=== PATIENT | male | born 1985 | race Caucasian/White ===

== ENCOUNTER 2019-12-05 06:57 | Emergency (ER) | payer SELFPAY ==
[2019-12-05 07:08] VITALS: BP 125/78; PULSE 100; RESP 18; TEMP 36.4; O2SAT 98
--- NOTE | 2019-12-05 07:22 | ED.GENADULT ---
HPI - General Adult General Chief complaint: Eye Problems Stated complaint: eye irration Time Seen by Provider: 12/05/19 07:05 Source: patient Mode of arrival: ambulatory Limitations: no limitations History of Present Illness HPI narrative: is a 34-year-old male patient. He presents ambulatory to the emergency room. He states that last Thursday he developed redness of the left eye. When he woke up on Thursday the left eye was matted shut with yellow drainage. He cleaned it with warm water. He had some itching and burning in the eye. The next day he developed the same thing on the right eye. He has had yellowish drainage from both eyes. No vision changes. No nasal drainage. No sore throat. No other symptoms. No pain in the eyes. MD complaint: Redness of both eyes Onset (ago): day(s) ( 3 days) Location: eyes ( both eyes) Severity: moderate Quality: burning Relieving factors: none Exacerbating factors: other ( rubbing the eyes) Associated symptoms: denies other symptoms Related Data Home Medications Medication Instructions Recorded Confirmed atorvastatin 20 mg PO DAILY 12/05/19 12/05/19 risperidone 1 mg PO BID 12/05/19 12/05/19 Allergies Allergy/AdvReac Type Severity Reaction Status Date / Time Penicillins Allergy Mild Unknown Verified 12/05/19 07:24 Review of Systems Review of Systems: All systems reviewed & are unremarkable except as noted in HPI and below Constitutional: Constitutional: Reports as per HPI, Denies chills and Denies fever(s) Eyes: Eyes: Reports as per HPI, Denies change in vision and Denies photophobia Comments: See HPI narrative ENT: Reports system reviewed and no additional complaints, except as documented, Denies nasal congestion and Denies sore throat Cardiovascular: Cardiovascular: Reports as per HPI and Denies chest pain Respiratory: Respiratory: Reports as per HPI and Denies cough Gastrointestinal: Gastrointestinal: Reports as per HPI and Reports no additional gastrointestinal complaints Genitourinary: Comments: deferred Musculoskeletal: Musculoskeletal: Reports as per HPI Comments: no complaints Integumentary/Breasts: Skin/Breast: Reports as per HPI and Denies rash Comments: redness to both eyes but no skin problems Neurologic: Reports system reviewed and no additional complaints, except as documented, Denies vertigo, Denies dizziness and Denies headache(s) Psychiatric: Psychiatric: Reports no additional psychiatric complaints Comments: has history of anxiety and takes risperidone Hematologic/Lymphatic: Hematologic/Lymphatic: Reports no additional hematologic/lymphatic complaints, Denies easy bleeding and Denies easy bruising Allergic/Immunologic: Allergic/Immunologic: Reports no additional allergic/immunologic complaints Comments: allergic to penicillin [facility] Past Medical History Medical History (Updated 12/05/19 @ 07:32 by Cj Ramsay MD) Anxiety Pyloric stenosis Surgical History Surgical History (Updated 12/05/19 @ 07:27 by Cj Ramsay MD) S/P pyloromyotomy, follow-up exam Social History Social History (Updated 12/05/19 @ 07:28 by Cj Ramsay MD) Smoking packs per day: 1 Smoking cigarettes per day: 20.0 Years smoked: 15 Smoking pack-years: 15.00 Smoking status: Current every day smoker Alcohol use details: drinks socially Substance use: never Living arrangements: with family Exam Const: General: healthy appearing, no acute distress and alert Orientation/consciousness: patient oriented x3 Limitations: no limitations HENMT: Ears: TM's normal bilaterally and EAC's normal General nose exam: Normal nares present Mouth: Yes moist mucous membranes Eyes: Conjunctivae: conjunctival abnormality ( bilateral redness of conjunctiva. Culture obtained from the eye.) right, left and bilateral Pupils: Equal, round and reactive pupils present EOM: EOMs intact bilaterally Direct Ophthalmoscopy: no ph
[2019-12-05] MEDS: DACRIOSE EYE IRRIGATION 118 ML BOTTLE 25 ML EACH EYE (07:29)
[2019-12-05 07:42] VITALS: BP 120/82; PULSE 80; RESP 20; O2SAT 98
== END 2019-12-05 07:49 | disposition home or self-care (01) ==
PROVIDERS: Emergency Provider Surgery; PCP Physician Assistant
DX: H10.9 Unspecified conjunctivitis (principal); F17.200 Nicotine dependence, unspecified, uncomplicated
CPT/HCPCS: 87070; 87077; 99283; A9270

== ENCOUNTER 2021-11-11 16:03 | Emergency (ER) | payer SELFPAY ==
--- NOTE | ~2021-11-11 | XR_ITS ---
EXAMINATION: XR hand RT min 3V EXAM DATE: 11/11/2021 17:11 INDICATION: Punched dog in the head today, H/o previous mult boxers fractures. TECHNIQUE: Right hand frontal, lateral and oblique projections obtained and reviewed. Comparison is m moe to prior examination from 03/27/2019. FINDINGS: Old right 5th metacarpal bone fractures. There are no acute fractures or dislocations iden tified. There is no subcutaneous gas. The thumb has a bandage obscuring the soft tissue but could i ndicate laceration. No other radiopaque foreign bodies identified. IMPRESSION: Right hand exam without acute osseous findings. Reviewed, dictated and finalized at location A. [employer]
--- NOTE | 2021-11-11 16:34 | ED.ANIMALBIT ---
HPI - Animal Bite General Chief Complaint: Animal Bite Stated Complaint: dog bite-leg and hand Source: patient and RN notes reviewed Mode of arrival: ambulatory Limitations: no limitations History of Present Illness HPI narrative: Patient states he noticed a dog on the side of the road walking. He stopped the open his door because he felt the dog looked cold. He states the dog lunged at him and grabbed onto his leg biting his right leg ache he then tried to put his thumb and the dog's jaw to get him to release but he did not so he started hitting the dog on the head. He has 2 puncture sue 1 on his right leg and 1 on his right thumb dorsal and palmar. He has pain to his right metacarpals. MD complaint: animal bite Onset (ago): hour(s) (15) Animal: dog Description of animal: unknown animal Mechanism: bite and contact with mucous membranes Location - Extremities: Right: forearm and thigh Pain description: dull Associated symptoms: none Treatments prior to arrival: pressure Related Data Patient tetanus UTD: No Allergies Allergy/AdvReac Type Severity Reaction Status Date / Time Penicillins Allergy Mild Unknown Verified 12/05/19 07:24 Review of Systems Review of Systems: All systems reviewed & are unremarkable except as noted in HPI and below PMFSH Past Medical History Medical History Anxiety Pyloric stenosis Surgical History Surgical History S/P pyloromyotomy, follow-up exam Social History Social History Smoking packs per day: 1 Smoking cigarettes per day: 20.0 Years smoked: 15 Smoking pack-years: 15.00 Smoking status: Current every day smoker Alcohol use details: drinks socially Substance use: never Exam Const: General: healthy appearing, no acute distress and alert Nutritional Appearance: well nourished Orientation/consciousness: patient oriented x3 HENMT: Head: normal to inspection Ears: external ears normal Eyes: Conjunctivae: conjunctivae normal Pupils: Equal, round and reactive pupils present EOM: EOMs intact bilaterally Neck: Neck: normal visual inspection Resp: Effort & Inspection: normal respiratory effort Auscultation: clear to auscultation bilaterally Cardio: Rate: regular rate Rhythm: regular rhythm GI: GI Palp: Yes Soft to palpation and No Tenderness to palpation present (GI) Auscultation: normal bowel sounds Back/Spine/Pelvis: Cervical Spine: cervical ROM normal Thoracic/Lumbar Spine: thoraco-lumbar ROM normal Skin: General skin exam: normal color Rashes: no rashes Wounds: wounds noted puncture wound right thumb size (.5 cm) and open ( Dorsal and palmar over the interphalangeal joint), puncture wound right upper leg size (.8 cm) and open ( distal inner thigh just above the knee) Neuro: General: patient oriented x3, moves all extremities, no meningeal signs, no focal motor deficits and CN's II-XI intact bilaterally Speech: normal speech Gait exam (Neuro): Normal gait present Extrem: General: normal exam except as noted and no clubbing, cyanosis or edema Right upper extremity: Extremity exam: right hand tenderness of the dorsal hand over the 4th metacarpal and over the 5th metacarpal Psych: Appearance: grossly normal and well kempt Mental Status: mental status grossly normal Affect: normal affect Attitude: cooperative Thought content: Yes Normal thought content present Course Course Emergency Course: I discussed with the patient that he does not know the dog. He does not know if the dog is up-to-date on his vaccinations and cannot locate the dog. I advised that he needs rabies immunoglobulin and rabies vaccination for series of for over 14 days. He declined at this time to have any rabies prophylaxis done. Discharge Plan Discharge Clinical Impression: Dog bite Qualifiers: Encounter type: initial enc
[2021-11-11 16:43] VITALS: BP 130/70; PULSE 70; RESP 20; TEMP 36.6; O2SAT 98
--- NOTE | 2021-11-11 16:47 | PC.NURSE ---
animal control called left voicemail & faxed incident report
[2021-11-11] MEDS: TETANUS,DIPHTHERIA,AC PERTUSSIS ADULT 0.5 ML (ADACEL) IM (16:59)
--- NOTE | 2021-11-11 17:01 | PC.NURSE ---
right thumb and leg leg cleaned with betadine & peroxide. puncture wound to thumb, abrasion to leg 3cm long, with one puncture wound. vaseline dressing applied to both areas.
[2021-11-11 17:33] VITALS: BP 132/80; PULSE 72; RESP 16; TEMP 36.6; O2SAT 99
== END 2021-11-11 17:34 | disposition home or self-care (01) ==
PROVIDERS: Emergency Provider Emergency Medicine
DX: S81.851A Open bite, right lower leg, initial encounter (principal); S61.451A Open bite of right hand, initial encounter; W54.0XXA Bitten by dog, initial encounter
CPT/HCPCS: 73130; 90471; 90715; 99282; 99283